=== PATIENT | female | born 1980 | race Caucasian/White ===

== ENCOUNTER 2017-08-08 09:12 | Emergency (ER) | payer OTHER ==
--- NOTE | 2017-08-08 09:25 | ED Physician Documentation ---
General Adult - HISTORIAN Historian: patient - HPI Stated Complaint: abd pain Chief Complaint: General Adult Onset: hours Timing: still present Severity: moderate Further Comments: yes (Pt is a 37 yo female with abd pain. Pt has hx ovarian cysts and pain is similar to pain she has had in the past due to ovarian cysts, but has lasted longer than the pain has lasted in the past. Pt has had no n/v, no fever. Pt does get occasional constipation.) - ROS CONST: no problems EYES/ENT: none CVS/RESP: none GI/: abdominal pain MS/SKIN/LYMPH: none - PAST HX Past History: other (ovarian cysts) Surgeries/Procedures: BTL, other (tonsillectomy) Allergies/Adverse Reactions: Allergies Allergy/AdvReac Type Severity Reaction Status Date / Time No Known Allergies Allergy Unverified 08/08/17 10:10 Home Medications: Ambulatory Orders Medication Instructions Recorded NK [NK] 08/08/17 - SOCIAL HX Smoking History: cigarettes - FAMILY HX Family History: No - REVIEWED ASSESSMENTS Nursing Assessment Reviewed: Yes Vitals Reviewed: Yes Progress - Progress Progress: Toradol 60 mg IM temporary improvement [place] (5/325). 2 tabs in ER improved. Rx [place] (5/325). Take one or two tablets by mouth every 4 to 6 hrs as needed for moderate to severe pain. General Adult Physical Exam - PHYSICAL EXAM GENERAL APPEARANCE: moderate distress EENT: pharynx normal NECK: normal inspection, supple RESPIRATORY: no resp distress, chest non-tender, breath sounds normal CVS: reg rate & rhythm, heart sounds normal ABDOMEN: soft, normal bowel sounds, tenderness (lower abd) BACK: normal inspection, no CVA tenderness SKIN: warm/dry, normal color EXTREMITIES: non-tender, normal range of motion, no evidence of injury, no edema NEURO: oriented X3, motor nml, sensation nml Discharge Clincal Impression: abd pain, hx ovarian cysts Referrals: Primary Doctor,No [Primary Care Provider] - Condition: Good Disposition: 01 HOME, SELF-CARE Decision to Admit: NO Decision Time: 10:50
[2017-08-08] MEDS ORDERED: KETOROLAC TROMETHAMINE 60 MG/2 ML VIAL IM ONE (09:30)
[2017-08-08 09:56] LABS: BASOPHILS % 0.6 (0.0-1.5); EOSINOPHILS % 1.7 % (0.0-6.8); MEAN CORPUSCULAR HEMOGLOBIN 29.7 pg (28.0-34.0); MEAN CORPUSCULAR VOLUME 92.4 fl (80.0-100.0); NEUTROPHILS # 3.7 # k/uL (1.4-7.7)
[2017-08-08 10:05] LABS: eGFR (African) > 60; eGFR (Non-African) > 60
[2017-08-08] MEDS ORDERED: HYDROcodone /APAP 5/325 1 EACH TABLET PO ONE (10:23)
[2017-08-08 11:02] VITALS: BP 110/58
[2017-08-09 07:49] LABS: APPEARANCE,URINE CLEAR (CLEAR); COLOR,URINE YELLOW (YELLOW); OCCULT BLOOD,URINE NEGATIVE (NEGATIVE); PH URINE 8.5 (5.0 - 8.0); UROBILINOGEN URINE 0.2 Eu (0.2-1.0)
== END 2017-08-08 10:55 | disposition home or self-care (01) ==
LOC: ED 09:12
DX: R10.9 Unspecified abdominal pain (principal); Z86.03 Personal history of neoplasm of uncertain behavior
CPT/HCPCS: 80053; 81002; 81025; 83690; 85025; A9270; J1885; 96372; 99284